=== PATIENT | male | born 1990 | race Caucasian/White ===

== ENCOUNTER 2021-02-05 06:20 | Day surgery (SDC) | payer BC ==
[~2021-02-05] VITALS: Ht 175.3 cm; Wt 85.0 kg
--- NOTE | ~2021-02-05 | OR ---
[facility] [address], [place] [address] Draft DATE OF OPERATION: 02/05/2021 SURGEON: Dago Fuller MD PREOPERATIVE DIAGNOSES: Persistent burping, dyspeptic symptoms, possible reflux. POSTOPERATIVE DIAGNOSES: Hiatal hernia without active esophagitis, normal-appearing stomach and duodenum. PROCEDURE: Esophagogastroduodenoscopy with biopsy. ANESTHESIA: Intravenous sedation, fentanyl 100 mcg, Versed 6 mg. INDICATION: This very healthy 30-year-old white man is a patient of Dr. Pruett and had complaints of rather significant burping and "indigestion." He self-medicated with Tums, which was not particularly helpful. He was evaluated by Dr. Pruett and serologic testing for H. pylori was performed, which was negative. He was prescribed Prilosec briefly, which helped to resolve his symptoms. Currently, he is reasonably symptom-free, particularly having avoided certain triggered foods including soda pop and others. He is not currently on PPI medication. He is admitted at this time to undergo upper endoscopy to better characterize the problem and in particular to assess for ulceration, assess the flap valve, assess for Chinchilla's epithelium, and so on. The risks of bleeding, infection, and perforation related to upper endoscopy was reviewed with him and he understands and wished to proceed. FINDINGS: There is no evidence of Chinchilla's epithelium or esophagitis or stricture. The stomach appeared reasonably normal as did the duodenum. Retroflexed view did confirm a poor flap valve consistent with small hiatal hernia. CLOtest biopsy was negative. DESCRIPTION OF PROCEDURE: The patient was brought to the endoscopy suite and given topical hypopharyngeal lidocaine anesthetic and placed in lateral decubitus position. He was given intravenous sedation to the point of slurred speech and nystagmus with full cardiopulmonary monitoring. A bite block was placed. An Olympus video upper endoscope was passed in the hypopharynx. Vocal cords were unable to be visualized due to the size of his PATIENT NAME: JONELLE WOODWARD OPERATIVE REPORT DATE OF : 88 REPORT #: [id number] PHYSICIAN: DAGO FULLER MD PCP: KENJI PRUETT MD REPORT IS CONFIDENTIAL AND NOT TO BE RELEASED WITHOUT AUTHORIZATION [facility] [address], [place] [address] Draft epiglottis. The scope was advanced into the esophagus, throughout its length it appeared normal. The scope was passed to the stomach, which was insufflated with air. Rugal folds were normal as was antral motility. The pylorus was normal and scope was passed through into the duodenum, which was normal. Biopsies were taken of the duodenum to assess for celiac disease. The scope was withdrawn and biopsies were taken of the antrum for both GRANT and pathologic testing. More proximal stomach appeared normal as well. The distal esophagus was evaluated and found to be with normal-appearing mucosa and no sign of Chinchilla's epithelium, stricture or neoplasm. Biopsies were obtained there and in the midesophagus. Mindful that good assessment of the flap valve was not fully undertaken. The scope was passed and advanced once again and retroflexed view then undertaken, which showed a patulous flap valve consistent with small hiatal hernia scope. Scope was straightened, withdrawn, and ultimately removed. The patient was taken to the recovery room in good condition. CONCLUDING DIAGNOSIS: Hiatal hernia without sign of active esophagitis, , stomach and duodenum were otherwise normal. CLOtest was negative at 15 minutes. PLAN: At this point, he would continue to avoid dietary triggers such as soda pop and so on. If symptoms should recur, treatment with PPI medication appropriate. We will see him back in the office in 4-6 weeks and assess his progress. We will review his pathology reports and so on. MD SHUN Enamorado/ELTONL /[id number] cc: Dr. Pruett Copies: ~ PATIENT NAME: JONELLE WOODWARD OPERATIVE REPORT DATE OF : [birth year] REPORT #: [id number] PHYSICIAN: DAGO FULLER MD PCP: KENJI PRUETT MD REPORT IS CONFIDENTIAL AND NOT TO BE RELEASED WITHOUT AUTHORIZATION
--- NOTE | 2021-02-05 08:18 | NUR ---
02/05/21 0818 Pallavi Grace 0812- PT ARRIVES TO PACU AWAKE AND TALKING. PT REPORTS NO PAIN OR NAUSEA. RESP EVEN AND UNLABORED. OXYGEN SAT HIGH 90'S TO 100% ON 2L VIA NC. 0817- OXYGEN TITRATED OFF.
--- NOTE | 2021-02-05 08:44 | NUR ---
PT ALERT, ORIENTED AND SUPPORTED BY HIS GIRLFRIEND SANDRINE. FIRST SCOPE FOR PT SEEMS SOMEWHAT ANXIOUS, WORKED TO EASE PT. OUTLINED PLAN FOR THE DAY, SANDRINE WILL BE AVAILABLE TO TRANSPORT HOME FOLLOWING DC. PT REQUESTED PRAYER.
--- NOTE | 2021-02-06 13:31 | PATH ---
[facility] [address] [place], [place] [address] Signed SPECIMEN(S): A DUODENAL BIOPSY SPECIMEN(S): B ANTRUM/PYLORUS BIOPSY SPECIMEN(S): C LOWER ESOPHAGEAL BIOPSY SPECIMEN(S): D MIDDLE ESOPHAGEAL BIOPSY SPECIMEN SOURCE: A. DUODENAL BIOPSY B. ANTRUM/PYLORUS BIOPSY C. LOWER ESOPHAGEAL BIOPSY D. MIDDLE ESOPHAGEAL BIOPSY CLINICAL HISTORY: Esophagogastroduodenoscopy. Burping, reflux. Postop: Normal. MICROSCOPIC DESCRIPTION: Histologic sections of all submitted blocks are examined by light microscopy. These findings, together with the gross examination, support the pathologic diagnosis. FINAL PATHOLOGIC DIAGNOSIS: A. Duodenum, biopsy: - Duodenal mucosa with no significant pathologic changes. B. Stomach, antrum/pylorus, biopsy: - Gastric antral mucosa with no significant pathologic changes. - Negative for Helicobacter pylori with HE stains. C. Esophagus, lower, biopsy: - Esophageal squamous mucosa with reactive epithelial changes. D. Esophagus, mid, biopsy: - Esophageal squamous mucosa with no significant pathologic changes. BRP:[facility]:C2NR GROSS DESCRIPTION: Four specimens are received in four containers, labeled "AB." A. The specimen, labeled "AB, duodenum biopsy," is received in formalin and consists of three bruce soft tissue fragments that measure 0.1 cm in greatest dimension. The specimen is entirely submitted in cassette (A1). B. The specimen, labeled "AB, antrum biopsy," is received in formalin and consists of two bruce soft tissue fragments that measure 0.1 cm in greatest dimension. The specimen is entirely submitted in cassette (B1). C. The specimen, labeled "AB, lower esophagus biopsy," is received in formalin PATIENT NAME: JONELLE WOODWARD PATHOLOGY DATE OF : [birth year] REPORT #: [id number] PHYSICIAN: HALEY PATHOLOGY PCP: KENJI PRUETT MD REPORT IS CONFIDENTIAL AND NOT TO BE RELEASED WITHOUT AUTHORIZATION [facility] [address] [address] Signed and consists of two bruce soft tissue fragments that measure 0.2-0.3 cm in greatest dimension. The specimen is entirely submitted in cassette (C1). D. The specimen, labeled "AB, middle esophagus biopsy," is received in formalin and consists of one bruce soft tissue fragment that measures 0.3 cm in greatest dimension. The specimen is entirely submitted in cassette (D1). JS (under the direct supervision of a pathologist) The Gross Description was prepared using a voice recognition system. The report was reviewed for accuracy; however, sound-alike word errors, addition and/or deletions may occur. If there is any question about this report, please contact Client Services. PERFORMING LABORATORY: The technical component was performed by [facility], [address] [place] [id number] (Title Officer: Nano Mcnally MD; CLIA# [id number]). [facility], [address] [address] (CLIA# [id number]). Diagnostician: Terry Britt MD Pathologist Electronically Signed 02/06/2021 Copies: ~ PATIENT NAME: JONELLE WOODWARD PATHOLOGY DATE OF : [birth year] REPORT #: [id number] PHYSICIAN: HALEY PATHOLOGY PCP: KENJI PRUETT MD REPORT IS CONFIDENTIAL AND NOT TO BE RELEASED WITHOUT AUTHORIZATION
== END 2021-02-05 08:45 | disposition home or self-care (01) ==
LOC: OPS 06:20 → DS 06:20 → OPS 06:45 → DS 14:00
PROVIDERS: ATTEND Surgery
PROC: 0DB68ZX Excision of Stomach, Via Natural or Artificial Opening Endoscopic, Diagnostic (ICD-10-PCS; 2021-02-05)
PROC: 0DB28ZX Excision of Middle Esophagus, Via Natural or Artificial Opening Endoscopic, Diagnostic (ICD-10-PCS; 2021-02-05)
PROC: 0DB38ZX Excision of Lower Esophagus, Via Natural or Artificial Opening Endoscopic, Diagnostic (ICD-10-PCS; 2021-02-05)
PROC: 0DB98ZX Excision of Duodenum, Via Natural or Artificial Opening Endoscopic, Diagnostic (ICD-10-PCS; principal; 2021-02-05 06:45)
DX: K21.9 Gastro-esophageal reflux disease without esophagitis (principal); K44.9 Diaphragmatic hernia without obstruction or gangrene
CPT/HCPCS: G0500; J2250; J3010; J7121

== ENCOUNTER 2022-04-12 20:14 | Emergency (ER) | payer OTHER, BC ==
[~2022-04-12] VITALS: Ht 175.3 cm; Wt 81.7 kg
[2022-04-12] MEDS ORDERED: PRILOSEC OTC20 MG PO (20:36)
== END 2022-04-12 21:45 | disposition home or self-care (01) ==
LOC: ED 20:14
DX: Z77.21 Contact with and (suspected) exposure to potentially hazardous body fluids (principal); Z91.048 Other nonmedicinal substance allergy status; Z79.899 Other long term (current) drug therapy
CPT/HCPCS: 36415; 84460; 86707; 87350; 87536; 99283